=== PATIENT | female | born 1990 ===

== ENCOUNTER 2021-07-26 19:45 | Inpatient (IN) | payer SELFPAY ==
[2021-07-26] MEDS ORDERED: OXYTOCIN 10 UNIT/1 ML INJ ONE (19:49)
[2021-07-26] MEDS ORDERED: OXYTOCIN DRIP 30,000 MILLIUNITS/500 ML BAG IV ONE (19:55)
[2021-07-26] MEDS ORDERED: miSOPROStol 200 MCG TAB PR PRN (19:57)
[2021-07-26] MEDS ORDERED: ACETAMINOPHEN 325 MG TAB PO PRN (19:57)
[2021-07-26] MEDS ORDERED: TERBUTALINE 1 MG/1 ML INJ SUB-Q PRN (19:57)
[2021-07-26] MEDS ORDERED: OXYTOCIN 10 UNIT/1 ML INJ IM PRN (19:57)
[2021-07-26] MEDS ORDERED: MINERAL OIL 30 ML ORAL LIQD PO PRN (19:57)
[2021-07-26] MEDS ORDERED: ONDANSETRON 4 MG/2 ML INJ IV PRN ×2 (19:57→21:29)
[2021-07-26] MEDS ORDERED: LOPERAMIDE 2 MG CAP PO PRN (19:57)
[2021-07-26] MEDS ORDERED: NalbUPHINE 10 MG/1 ML INJ IV PRN (19:57)
[2021-07-26] MEDS ORDERED: ePHEDrine SULFATE 50 MG/1 ML INJ IV PRN (19:57)
[2021-07-26] MEDS ORDERED: LIDOCAINE (2%) 20 MG/1 ML VIAL 20 ML MDV INFILTRATI ONE (19:57)
[2021-07-26] MEDS ORDERED: PROMETHAZINE 25 MG TAB PO PRN ×2 (19:57→21:29)
[2021-07-26] MEDS ORDERED: fentaNYL 100 MCG/2 ML INJ IV PRN (19:57)
[2021-07-26] MEDS ORDERED: METHYLERGONOVINE MALEATE 0.2 MG/ML VIAL IM PRN (19:57)
[2021-07-26] MEDS ORDERED: CARBOPROST TROMETHAMINE 250 MCG/1 ML INJ IM PRN (19:57)
[2021-07-26] MEDS ORDERED: OXYTOCIN DRIP 30 UNITS/500 ML BAG IV SCH ×2 (20:00)
[2021-07-26] MEDS ORDERED: LACTATED RINGERS 1,000 ML IV SCH (20:00)
--- NOTE | 2021-07-26 20:12 | History and Physical Report ---
History of Present Illness Date of examination: 07/26/21 Date of admission: 07/26/21 19:45 Chief complaint: painful ctx and LOF fluid History of present illness: at 39.3wks by EDC noted in records from [place] [facility]. Pt gives history of LOF of fluid and painful contractions and desires epidural. pt denies vag bleed or headache. Pt admits to movement. Pt brought her records with blood type ) positive, neg antibody screen, rubella immune, RPR non-reactive, HebBsAg negative, HIV neg and pap wnl. Gonorrhea negative and chlamydia positive for which pt was treated on 03/18/21. No Test of cure seen and no GBS result. 1hrgtt 168 and no 3hrgtt result seen. Past History Past Medical History: no pertinent history Past Surgical History: no surgical history [employer] History: chlamydia (treated 03/2021) Social history: no significant social history - Obstetrical History Expected Date of Delivery: 07/30/21 Actual Gestation: 39 Week(s) 3 Day(s) : 2 Hx # Term Pregnancies: 1 Number of Living Children: 1 Medications and Allergies Active Meds: Active Medications Acetaminophen (Acetaminophen 325 Mg Tab) 650 mg PO Q4H PRN PRN Reason: Pain, Mild (1-3) Carboprost Tromethamine (Carboprost Tromethamine 250 Mcg/1 Ml Inj) 250 mcg IM ONCE PRN PRN Reason: Uterine Bleeding Ephedrine Sulfate (Ephedrine Sulfate 50 Mg/1 Ml Inj) 10 mg IV Q2M PRN PRN Reason: Hypotension Fentanyl (Fentanyl 100 Mcg/2 Ml Inj) 100 mcg IV Q2H PRN PRN Reason: Pain,Severe (7-10) LABOR PAIN Oxytocin/Sodium Chloride (Pitocin/Ns 30 Unit/500ml) 30 units in 500 mls @ 2 mls/hr IV TITR SHADE; Protocol Lactated Ringer's (Lactated Ringers) 1,000 mls @ 125 mls/hr IV DIRECT SHADE Oxytocin/Sodium Chloride (Pitocin/Ns 30 Unit/500ml) 30 units in 500 mls @ 40 mls/hr IV TITR SHADE; Protocol Lidocaine (Lidocaine (2%) 20 Mg/1 Ml Vial 20 Ml Mdv) 20 ml INFILTRATI ONCE ONE Stop: 07/26/21 19:58 Loperamide HCl (Loperamide 2 Mg Cap) 2 mg PO ONCE PRN PRN Reason: give with Hemabate Methylergonovine Maleate (Methylergonovine Maleate 0.2 Mg/Ml Vial) 0.2 mg IM ONCE PRN PRN Reason: Uterine Bleeding Mineral Oil (Mineral Oil 30 Ml Oral Liqd) 30 ml PO QHS PRN PRN Reason: Constipation Misoprostol (Misoprostol 200 Mcg Tab) 800 mcg MA ONCE PRN PRN Reason: Uterine Bleeding Nalbuphine HCl (Nalbuphine 10 Mg/1 Ml Inj) 10 mg IV Q2H PRN PRN Reason: Pain, Moderate (4-6) Ondansetron HCl (Ondansetron 4 Mg/2 Ml Inj) 4 mg IV Q8H PRN PRN Reason: Nausea And Vomiting Oxytocin (Oxytocin 10 Unit/1 Ml Inj) 10 unit IM ONCE PRN PRN Reason: Uterine Bleeding Promethazine HCl (Promethazine 25 Mg Tab) 25 mg PO Q6H PRN PRN Reason: Nausea And Vomiting Terbutaline Sulfate (Terbutaline 1 Mg/1 Ml Inj) 0.25 mg SUB-Q ONCE PRN PRN Reason: Hyperstimulation/Hypertonicity Review of Systems All systems: negative (ctx and LOF) - Physical Exam Breasts: Positive: deferred Cardiovascular: Regular rate Lungs: Positive: Normal air movement Abdomen: Positive: soft Genitourinary (Female): Positive: normal external genitalia Vulva: both: normal Vagina: Positive: normal moisture Uterus: Positive: enlarged (non-tender, gravid) Extremities: Positive: normal - Obstetrical FHR: category 1 Uterine Contraction Monitor Mode: Palpation Cervical Dilatation: 9.5 (7cm in triage) Cervical Effacement Percentage: 100 station: 0 Uterine Contraction Pattern: Regular Uterine Contraction Intensity: Strong/Firm Results All other labs normal. Assessment and Plan Term IUP with meconoium stained fluid thick and pushing 1. Admit to labor and delivery, pt still not yet registered and registrant notified. 2. NICU notified and present 3. Will plan to delivery and then obtain labs Plan of care discussed and pt agrees. Expect
--- NOTE | 2021-07-26 20:22 | Procedure Note ---
OB Delivery Note - Delivery Date of Delivery: 07/26/21 Surgeon: KATHERIN RIVERA Estimated blood loss: 200cc - Vaginal Delivery presentation: vertex Delivery position: OA Intrapartum events: meconium, precipitous labor- <3hr, shoulder dystocia Delivery induction: none Delivery monitor: external FHT, external uterine Route of delivery: Delivery placenta: spontaneous Delivery cord: 3 umbilical vessels Episiotomy: none Delivery laceration: other (small perineal abraision requiring no repair) Anesthesia: none Delivery comments: Precipitous vaginal delivery with shoulder dystocia relieved by Altaf and suprapubic pressure. Pt was not yet in computer when she was . Placenta delivered complete and cervix visualized and no lacerations seen. Small abraision to perineum noted and same required no repair. Bimanual exam with uterus firm after IM pitocin given. Pt to receive IV pitocin and also one dose of ancef 2gm with large amount of soft yellow-brown stool everywhere. Pt and baby stable - A at 1 minute: 8 at 5 minutes: 9 Infant Gender: Male (thick meconium stained fluid; wt 3420g)
[2021-07-26 21:21] LABS: Hematocrit 38.8 % (30.3-42.9); Hemoglobin 12.8 gm/dl (10.1-14.3); Mean Corpuscular HGB Conc 33 % (30-34); Mean Corpuscular Volume 90 fl (79-97); Platelet Count 369 K/mm3 (140-440); Red Cell Distribution Width 14.9 % (13.2-15.2)
[2021-07-26] MEDS ORDERED: MAGNESIUM HYDROXIDE (MOM) ORAL LIQD UDC PO PRN (21:29)
[2021-07-26] MEDS ORDERED: PROMETHAZINE 25 MG RECT SUPP PR PRN (21:29)
[2021-07-26] MEDS ORDERED: diphenhydrAMINE 25 MG CAP PO PRN (21:29)
[2021-07-26] MEDS ORDERED: LANOLIN/ZINC/DIMETHICONE (LANSINOH) 7 GM TP PRN (21:29)
[2021-07-26] MEDS ORDERED: oxyCODONE /ACETAMINOPHEN 5-325MG TAB PO PRN (21:29)
[2021-07-26] MEDS ORDERED: WITCH HAZEL/ GLYCERIN PAD TP PRN (21:29)
[2021-07-26] MEDS: IBUPROFEN 600 MG TAB PO SCH (21:50)
[2021-07-27] MEDS: IBUPROFEN 600 MG TAB PO SCH ×2 (06:29→22:26)
[2021-07-27] MEDS: PRENATAL VIT27-FE FUMARATE-FOLIC ACID VIT TAB PO SCH (08:53)
--- NOTE | 2021-07-27 09:19 | Progress Note ---
Assessment and Plan A: PP Day #1 Stable P: Follow Routine Orders D/C Home today per Patient Request RTO in 6 Weeks Subjective - Subjective Date of service: 07/27/21 Patient reports: appetite normal, voiding normally, pain well controlled, flat us, ambulating normally : doing well, bottle feeding Objective - Vital Signs Latest vital signs: Vital Signs Temp Pulse Resp BP Pulse Ox Pulse Ox 07/27/21 08:22 98.0 F 82 18 107/71 97 07/27/21 08:10 98 07/27/21 06:29 18 07/27/21 05:03 97.5 F L 80 20 104/52 95 07/27/21 00:23 100 07/26/21 23:26 98.8 F 94 H 18 103/61 96 07/26/21 23:02 83 96 07/26/21 22:57 82 97 07/26/21 22:52 82 97 07/26/21 22:50 18 07/26/21 22:47 89 97 07/26/21 22:42 96 H 97 07/26/21 22:37 100 H 97 07/26/21 22:32 92 H 96 07/26/21 22:27 91 H 97 07/26/21 22:22 95 H 96 07/26/21 22:17 93 H 97 07/26/21 22:12 94 H 96 07/26/21 22:07 93 H 97 07/26/21 22:02 96 H 99 07/26/21 21:57 101 H 100 07/26/21 21:52 102 H 99 07/26/21 21:47 91 H 98 07/26/21 21:42 100 H 98 07/26/21 21:37 86 97 07/26/21 21:32 90 96 07/26/21 21:29 100 H 106/63 07/26/21 21:27 94 H 95 07/26/21 21:22 92 H 99 07/26/21 21:17 87 96 07/26/21 21:12 94 H 98 07/26/21 21:07 101 H 107/72 97 07/26/21 21:02 97 H 97 07/26/21 20:57 90 98 07/26/21 20:52 102 H 98 07/26/21 20:47 101 H 99 07/26/21 20:42 103 H 99 07/26/21 20:37 102 H 99 07/26/21 20:36 97.8 F 07/26/21 20:35 105 H 118/76 07/26/21 20:32 104 H 97 07/26/21 20:27 105 H 97 07/26/21 20:22 96 H 97 Intake and Output 07/26/21 07/27/21 07/27/21 22:59 06:59 14:59 Intake Total 240 360 Output Total 1000 450 Balance -760 -90 Intake: Oral 240 360 Output: Urine 1000 450 Void 1000 450 Other: Total, Intake Amount 240 360 Total, Output Amount 600 450 # Voids Void 1 Weight 62.596 kg Estimated Blood Loss 200 - Exam Breasts: Present: normal Cardiovascular: Present: Regular rate Lungs: Present: Clear to auscultation, Normal air movement Abdomen: Present: normal appearance, soft, normal bowel sounds Uterus: Present: normal, firm, fundal height below umbilicus Extremities: Present: normal
--- NOTE | 2021-07-27 09:21 | Discharge Summary ---
Providers - Providers Date of Admission: 07/26/21 21:29 Date of discharge: 07/27/21 Attending physician: KATHERIN RIVERA Primary care physician: KATHERIN RIVERA Hospitalization Reason for admission: rupture of membranes, IUP at term Delivery: Episiotomy: none Laceration: none Other procedures: none complications: none Discharge diagnosis: IUP at term delivered baby: male Condition at discharge: Good Disposition: 01 HOME / SELF CARE / HOMELESS Plan - Provider Discharge Summary Activity: routine, no sex for 6 weeks, no heavy lifting 4 weeks, no strenuous exercise Diet: routine Instructions: routine Additional instructions: [] Smoking cessation referral if applicable(refer to patient education folder for contact #) [] Refer to [facility] Booklet Call your doctor immediately for: * Fever > 100.5 * Heavy vaginal bleeding ( >1 pad per hour) * Severe persistent headache * Shortness of breath * Reddened, hot, painful area to leg or breast * Drainage or odor from incision. * Keep incision clean and dry at all times and follow doctor's instructions regarding bathing/showering - Follow up plan Follow up: KATHERIN RIVERA MD [Primary Care Provider] - 6 Weeks
[2021-07-27 10:54] LABS: Hematocrit 33.9 % (30.3-42.9); Mean Corpuscular HGB Conc 33 % (30-34); Mean Corpuscular Volume 91 fl (79-97); Platelet Count 321 K/mm3 (140-440); Red Blood Count 3.71 M/mm3 (3.65-5.03)
[2021-07-28] MEDS: IBUPROFEN 600 MG TAB PO SCH (05:47)
[2021-07-28] MEDS: PRENATAL VIT27-FE FUMARATE-FOLIC ACID VIT TAB PO SCH (09:38)
[2021-07-28 20:48] VITALS: BP 110/68
== END 2021-07-28 23:20 | disposition home or self-care (01) | DRG 807 ==
LOC: LD 19:45 → UNDOADMIN 19:45 → LD 19:57 → UNDOADMIN 19:57 → LD 21:29 → OB 23:19
PROVIDERS: ADMIT Obstetrics & Gynecology; ATTEND Obstetrics & Gynecology
PROC: 10E0XZZ Delivery of Products of Conception, External Approach (ICD-10-PCS; principal; 2021-07-26)
DX: O77.0 Labor and delivery complicated by meconium in amniotic fluid (principal); Z37.0 Single live birth; Z3A.39 39 weeks gestation of pregnancy; Z20.822 Contact with and (suspected) exposure to COVID-19; O66.0 Obstructed labor due to shoulder dystocia; O62.3 Precipitate labor
CPT/HCPCS: 36415; 85027; 86592; 86850; 86900; 86901; G0378; J0690; J2590; U0003